=== PATIENT | female | born 1935 | race Caucasian/White ===

== ENCOUNTER 2017-12-04 07:20 | Observation (INO) | payer MEDICARE, OTHER ==
[2017-12-04] VITALS (18 sets, daily range): BP systolic 100–201; BP diastolic 37–69
[~2017-12-04] VITALS: Ht 154.9 cm; Wt 73.5 kg
--- NOTE | ~2017-12-04 | H ---
[address] [address] HISTORY AND PHYSICAL Name: BANDAR POSADA Room: [address] Lisa Shepherd#: [id number] Admission: 12/04/17 Attend Phys: Augustine Coulter MD, Discharge: 12/05/17 Date of : 35 Report #: [id number] THIS REPORT FOR: //name// Please refer to the History and Physical performed in the physician's office. By: [id number] Records Staff JACKIE /CAREN
[~2017-12-04 07:20] MED LIST: ASPIR 8181 MG PO; ATORVASTATIN CA40 MG PO; COZAAR 50 MG TA50 M2 PO; FISH OIL 1,001000 M2 PO; LASIX 40 MG TAB40 M2 PO; NITROGLYCERIN0.4 MG SUBLING; OMEPRAZOLE40 MG PO; OYSTER SHELL C1 EA15 PO; PLAVIX 75 MG TA75 M1 PO; POTASSIUM20 PO; SYNTHROID75 MCG PO; TOPROL XL25 MG PO
[2017-12-04 08:06] LABS: HEMATOCRIT 40.6 % (37.0-47.0); HEMOGLOBIN 13.1 gm/dL (12.0-15.0); MCH 29.9 pg (26.0-34.0); MCHC 32.3 g/dL (28.0-37.0); MCV 92.6 fL (80.0-100.0); MPV 7.2 fl. (7.2-11.1); RBC 4.39 mil/uL (4.20-5.00); RDW-CV 14.4 % (10.5-14.5)
[2017-12-04 08:14] LABS: APTT 24.1 Seconds (25.0-31.3); INR 1.1; PROTIME 10.4 Seconds (9.20-11.50)
[2017-12-04 08:17] LABS: ANION GAP 4 mmol/L (7-16); BUN 20 mg/dL (7-18); CALCIUM 9.2 mg/dL (8.5-10.1); CHLORIDE 107 mmol/L (98-107); CO2 28 mmol/L (21-32); GLUCOSE 94 mg/dL (70-99); POTASSIUM 3.8 mmol/L (3.5-5.1); SODIUM 139 mmol/L (136-145)
[2017-12-04 08:19] LABS: ALBUMIN 3.7 g/dL (3.4-5.0); ALKALINE PHOSPHATASE 157 U/L (46-116); CHOLESTEROL 97 mg/dL (<200); HDL CHOLESTEROL 62 mg/dL (>40); LDL CHOLESTEROL 23 mg/dL (<100); SGOT 41 U/L (15-37); SGPT 70 U/L (30-65); TC:HDL 1.6 Ratio (Not establshd); TOTAL BILIRUBIN 0.4 mg/dL (<0.1-1.0); TOTAL PROTEIN 7.5 g/dL (6.4-8.2); TRIGLYCERIDE 63 mg/dL (<150); VLDL 13 mg/dL (<40)
[2017-12-04 08:20] LABS: SERUM ASSESSMENT Clear
[2017-12-05] VITALS: BP 182/70
[2017-12-05 04:00] VITALS: BP 128/71
[2017-12-05 05:02] LABS: HEMATOCRIT 35.5 % (37.0-47.0); HEMOGLOBIN 11.8 gm/dL (12.0-15.0); MCH 30.5 pg (26.0-34.0); MCHC 33.2 g/dL (28.0-37.0); MCV 91.9 fL (80.0-100.0); MPV 7.4 fl. (7.2-11.1); RBC 3.86 mil/uL (4.20-5.00); RDW-CV 14.4 % (10.5-14.5); WBC 6.8 thou/uL (4.0-11.0)
[2017-12-05 05:37] LABS: ALBUMIN 3.1 g/dL (3.4-5.0); CALCIUM 8.4 mg/dL (8.5-10.1); CREATININE 0.9 mg/dL (0.6-1.3); POTASSIUM 4.5 mmol/L (3.5-5.1); TOTAL BILIRUBIN 0.5 mg/dL (<0.1-1.0); TOTAL PROTEIN 5.9 g/dL (6.4-8.2); TROPONIN-I LEVEL 0.08 ng/mL (<0.06)
[2017-12-05 08:00] VITALS: BP 112/64
[2017-12-05] MEDS ORDERED: BRILINTA90 MG PO (10:33)
[2017-12-05 10:40] VITALS: BP 149/47
--- NOTE | 2017-12-05 11:24 | CARD ---
[address] [address] CARDIAC CATH REPORT Name: BANDAR POSADA Room: [address] M.RMiguel#: [id number] Admission: 12/04/17 Attend Phys: Augustine Coulter MD, Discharge: Date of : 35 Report #: [id number] THIS REPORT FOR: //name// APPROVED REPORT Study performed: 12/04/2017 08:59:57 Patient Details Patient Status: Out-Patient Room #: Event Personnel Augustine Coulter MD Procedures Performed Left heart catheterization left ventriculography selective coronary arteriography and percutaneous coronary intervention to the LAD with atherectomy and stenting of the proximal and mid LAD Indication Dyspnea, Positive stress test Risk Factors Hypercholesterolemia, Hypertension Previous Procedures/Diagnoses Previous PCI Admission/Lab Medications/Medications given during procedure Aspirin, Platelet Aff. Inhib., Angiomax bolus and infusion Procedure Narrative The patient was brought electively to the Cardiac Catheterization Laboratory and was prepped and draped in a sterile manner. The right femoral was infiltrated with 1% Lidocaine subcutaneous anesthesia. A 6 [place] Islander sheath was inserted into the right femoral artery. Coronary angiography was performed using coronary diagnostic catheters. The right coronary system was accessed and visualized with a Diagnostic catheter. The left coronary system was accessed and visualized with a Diagnostic catheter. The left ventricle was accessed and visualized with a Diagnostic catheter. Left ventricular/Aortic Valve gradient assessed via catheter pullback. Left ventriculogram was performed in PAIZ projection. Pre-demployment femoral angiogram was performed . Closure device was deployed with a 6 Fr Angio-Seal. There was no hematoma. [address] [address] CARDIAC CATH REPORT Name: ALBINOBANDAR Room: [address] Lisa Shepherd#: [id number] Admission: 12/04/17 Attend Phys: Augustine Coulter MD, Discharge: Date of : 35 Report #: [id number] Coronary Angiography The patient's coronary anatomy is left dominant. Diagnostic Cath Left Main 0% narrowing LAD 75% proximal with 90% heavily calcified mid LAD stenosis with FRANCIS 2 flow to the distal vessel Circumflex 75% mid vessel narrowing and 95% narrowing of the proximal portion of the prominent second marginal branch Right Coronary Small nondominant vessel with 80-90% proximal narrowing Left Ventriculography The left ventricle is normal in size with normal contractility. The left ventricular ejection fraction is estimated to be 65%. Left ventricular wall motion abnormalities are not present. There is no mitral insufficiency. Hemodynamics The aortic pressure is 140/70 mmHg with a mean of 82 mmHg. The left ventricular end diastolic pressure is 20 mmHg. There was no gradient across the aortic valve upon pullback. PCI Technique Lesion Anticoagulation was achieved with Angiomax. Percutaneous coronary intervention was performed on the mid LAD. The lesion stenosis prior to intervention was 95% with FRANCIS 2 flow. A 6 [place]er XB LAD 3.0 Guide Catheter was used to engage the left ostium. A 014 prowater flex Interventional Guidewire was used to cross the lesion. BALLOON DILATION A Balloon catheter 2.0 x 12 mm trek was inserted and inflated up to 14atm for 10seconds. I then proceeded with atherotomy atherectomy with a 2.0 x 10 mm angioscope scoring balloon inflated to 8 roseanne to allow lesion modification and adequate stent deployment STENT DEPLOYMENT A drug-eluting stent 2,25x12 xience alpine was inserted and inflated up to 10atm for 15seconds. Final angiography reveals 10 % stenosis with FRANCIS and3 flow. PCI Technique Lesion 2 Percutaneous Coronary Intervention was performed on the proximal left anterior descending artery segment[place] [address] CARDIAC CATH REPORT Name: BANDAR POSADA Room: [address] M.RMiguel#: [id number] Admission: 12/04/17 Attend Phys: Augustine Coulter MD, Discharge: Date of : 35 Report #: [id number] intervention was performed on the proximal LAD. The lesion stenosis prior to intervention was 75% with FRANCIS 3 flow. Balloon Dilation A Balloon catheter 2.5 x 12 NC trek was inserted and inflated up to 15atm for 15seconds. Stent Deployment A drug-eluting stent 2.25 x 18 mm Xience Alpine was inserted and inflated up to 14atm for 15seconds. Final angiography reveals 0 % stenosis with FRANCIS 3 flow. Conclusion #1 significant multivessel coronary artery disease characterized by the following: A 75% proximal and 95% mid LAD stenosis, the latter being heavily calcified B 75% midcircumflex stenosis with 90% stenosis of the proximal portion of the prominent second marginal branch C small nondominant right coronary artery with 80-90% proximal narrowing #2 normal left ventricular systolic function, estimated ejection fraction being 65% #3 moderate elevation of left ventricular end-diastolic pressure at rest #4 successful percutaneous coronary intervention with atherectomy followed by stenting of the mid LAD with 10% residual narrowing following final stent deployment #5 successful percutaneous coronary intervention with angioplasty followed by stenting of the proximal LAD with 0% residual narrowing following stent deployment Recommendations Cardiac Risk Reduction Program Aggressive Medical Therapy [place] [address] CARDIAC CATH REPORT Name: BANDAR POSADA Room: [address] M.R.#: [id number] Admission: 12/04/17 Attend Phys: Augustine Coulter MD, Discharge: Date of : 35 Report #: [id number] Aspirin (any) Ticagrelor Diagnostic Cath Approved by: Augustine Coulter MD Date/Time: 12/05/17 and 1122 hrs. <ELECTRONICALLY SIGNED> By: Augustine Coulter MD, [facility] 12/05/17 1124 1124Joanuj Coulter MD, FACC /INF
--- NOTE | 2017-12-05 13:37 | EKG ---
[place] [address] ELECTROCARDIOGRAM REPORT Name: BANDAR POSADA Kosta Room: [address]#: [id number] Admission: 12/04/17 Attend Phys: Augustine Coulter MD, Discharge: 12/05/17 Date of : 35 Report #: [id number] THIS REPORT FOR: //name// [facility] Test Date: 2017-12-04 Test Time: 08:26:57 Pat Name: BANDAR POSADA Department: Room: Gender: F Manager Report: [facility] : 1935 Requested By: Augustine Coulter Order Number: [id number] Reading MD: Donald Cole Measurements Intervals [place] Rate: 52 P: 43 [place]: 193 QRS: 77 QRSD: 101 T: 65 QT: 437 QTc: 407 Interpretive Statements Sinus rhythm Atrial premature complex Low voltage, precordial leads No previous ECG available for comparison Electronically Signed On 12-05-2017 13:37:13 CDT by Donald Cole [email or web address] <ELECTRONICALLY SIGNED> By: Donald Cole MD, [facility] 12/05/17 1337 0826 5 Donald Cole MD, [facility] /EPI
--- NOTE | 2017-12-05 14:28 | EKG ---
[place] [address] ELECTROCARDIOGRAM REPORT Name: BANDAR POSADA Kosta Room: [address]#: [id number] Admission: 12/04/17 Attend Phys: Augustine Coulter MD, Discharge: 12/05/17 Date of : 35 Report #: [id number] THIS REPORT FOR: //name// [facility] Test Date: 2017-12-04 Test Time: 12:44:36 Pat Name: BANDAR POSADA Department: Room: Gender: F Cash Manager: [facility] : 1935 Requested By: Augustine Coulter Order Number: [id number] Reading MD: Donald Cole Measurements Intervals [place] Rate: 57 P: 65 NE: 190 QRS: 57 QRSD: 98 T: 56 QT: 451 QTc: 440 Interpretive Statements Sinus rhythm Low voltage, extremity leads No previous ECG available for comparison Electronically Signed On 12-05-2017 14:28:27 CDT by Donald Cole [email or web address] <ELECTRONICALLY SIGNED> By: Donald Cloe MD, [facility] 12/05/17 1428 1244 1244 Donald Cole MD, [facility] /EPI
--- NOTE | 2017-12-05 14:31 | EKG ---
[place] [address] ELECTROCARDIOGRAM REPORT Name: BANDAR POSADA Kosta Room: [address]#: [id number] Admission: 12/04/17 Attend Phys: Augustine Coulter MD, Discharge: 12/05/17 Date of : 35 Report #: [id number] THIS REPORT FOR: //name// [facility] Test Date: 2017-12-05 Test Time: 08:39:14 Pat Name: BANDAR POSADA Department: Room: Gender: F Educational Paraprofessional: : 1935 Requested By: Augustine Coulter Order Number: [id number] Reading MD: Donald Cole Measurements Intervals [place] Rate: 62 P: 78 [place]: 183 QRS: 102 QRSD: 99 T: 33 QT: 446 QTc: 453 Interpretive Statements Sinus rhythm Right axis deviation Borderline low voltage, extremity leads No previous ECG available for comparison Electronically Signed On 12-05-2017 14:31:33 CDT by Donald Cole [email or web address] <ELECTRONICALLY SIGNED> By: Donald Cole MD, [facility] 12/05/17 1431 0839 0839 Donald Cole MD, [facility] /EPI
--- NOTE | 2017-12-05 17:06 | D ---
[address] [address] DISCHARGE SUMMARY Name: ALBINOBANDAR Kosta Room: [address] Lisa Shepherd#: [id number] Admission: 12/04/17 Attend Phys: Augustine Coulter MD, Discharge: 12/05/17 Date of : 35 Report #: [id number] THIS REPORT FOR: //name// CC: Augustine Tamayo DATE OF SERVICE: 12/05/2017 LOCATION: The patient is discharged from room 230. FINAL DISCHARGE DIAGNOSES: 1. Abnormal nuclear stress test with inducible anteroapical ischemia. 2. Coronary artery disease. 3. Status post percutaneous coronary intervention of the left anterior descending. 4. Hypertension. 5. Hyperlipidemia. 6. Hypothyroidism. PROCEDURES: On 12/04/2017 - left heart catheterization, left ventriculography, selective coronary arteriography and percutaneous coronary intervention to the LAD with atherectomy and stenting of the LAD. HOSPITAL COURSE: The patient is an 82-year-old female with a history of coronary artery disease, hypertension and hyperlipidemia. Recently, she has noted some dyspnea on exertion, above and beyond that noted in the past. Nuclear stress test revealed inducible anteroapical ischemia and I performed cardiac catheterization on 12/04/2017, which revealed tandem 75% proximal and 90% to 95% heavily calcified mid LAD stenosis with 70% mid circumflex and 90% second marginal stenosis. I performed intervention on the LAD with a lesion modification with a scoring balloon and atherectomy of the more distal lesion, with dilatation of the proximal and subsequently deployment of two drug-eluting stents in the proximal and mid LAD with 10% and 0% residual narrowing with FRANCIS 3 flow of the distal vessel. Troponin reinaldo inconsequentially to 0.08. She did well post-procedurally, without chest pain and there was good hemostasis of the right femoral site of catheterization. She ambulated in the hallways without difficulty. LABORATORY DATA: On 12/05/2017 revealed hemoglobin of 11.8, white blood cell count of 6800 with 231,000 platelets. Sodium 139, potassium 3.8, BUN 20 and creatinine 1.0. The patient ambulated in the hallways without difficulty. She will be seen by my nurse practitioner next week with a tentative plan to schedule staged intervention to the circumflex in the week of 12/18/[place] [address] DISCHARGE SUMMARY Name: BANDAR POSADA Room: [address] Cora#: [id number] Admission: 12/04/17 Attend Phys: Augustine Coulter MD, Discharge: 12/05/17 Date of : 35 Report #: [id number] DISCHARGE MEDICATIONS: Thus, the patient is discharged to home on 12/05/2017 on the following medications: Aspirin 81 mg daily, atorvastatin 40 mg daily, calcium and vitamin D 1 tablet daily, fish oil 1000 mg daily, furosemide 40 mg daily, L-thyroxine 75 mcg daily, losartan 100 mg daily, metoprolol succinate 25 mg daily, omeprazole 40 mg daily, potassium chloride 20 mEq daily and Brilinta 90 mg b.i.d. with 180 mg loading dose. Again, she is to see my nurse practitioner next week for followup; I will plan to proceed with staged intervention of the circumflex in the week of 12/18/2017. <ELECTRONICALLY SIGNED> By: Augustine Coulter MD, FACC 12/05/17 1706 0912 1102Joanuj Coulter MD, FAC /nt
== END 2017-12-05 11:33 | disposition home or self-care (01) ==
LOC: M.CL 07:20 → M.2W 12:21 → M.TBA-CV 12:21 → M.2W 15:05
PROVIDERS: ADMIT Internal Medicine
DX: I25.10 Atherosclerotic heart disease of native coronary artery without angina pectoris (principal); I11.0 Hypertensive heart disease with heart failure; I50.31 Acute diastolic (congestive) heart failure; E78.5 Hyperlipidemia, unspecified; E03.9 Hypothyroidism, unspecified; I99.8 Other disorder of circulatory system; I34.0 Nonrheumatic mitral (valve) insufficiency; R94.39 Abnormal result of other cardiovascular function study; R06.09 Other forms of dyspnea; Z90.49 Acquired absence of other specified parts of digestive tract; Z72.89 Other problems related to lifestyle; Z95.5 Presence of coronary angioplasty implant and graft

== ENCOUNTER 2017-12-18 07:23 | Observation (INO) | payer MEDICARE, OTHER ==
[2017-12-18] VITALS (12 sets, daily range): BP systolic 122–174; BP diastolic 41–65
[~2017-12-18] VITALS: Ht 154.9 cm; Wt 67.6 kg
--- NOTE | ~2017-12-18 | H ---
[address] [address] HISTORY AND PHYSICAL Name: BANDAR POSADA Room: [address] Lisa Shepherd#: [id number] Admission: 12/18/17 Attend Phys: Augustine Coulter MD, Discharge: 12/19/17 Date of : 35 Report #: [id number] THIS REPORT FOR: //name// Please refer to the History and Physical performed in the physician's office. By: [id number] Records Staff JACKIE /CAREN
[~2017-12-18 07:23] MED LIST changes: +BRILINTA90 MG PO
[2017-12-18] MEDS ORDERED: MULTI VITAMIN1 EACH PO (08:22)
[2017-12-18 08:23] LABS: HEMATOCRIT 38.8 % (37.0-47.0); HEMOGLOBIN 12.8 gm/dL (12.0-15.0); MCH 30.2 pg (26.0-34.0); MCHC 32.9 g/dL (28.0-37.0); MCV 91.8 fL (80.0-100.0); MPV 7.3 fl. (7.2-11.1); RBC 4.23 mil/uL (4.20-5.00); RDW-CV 14.9 % (10.5-14.5)
[2017-12-18 08:35] LABS: APTT 22.1 Seconds (25.0-31.3); INR 1.1; PROTIME 10.4 Seconds (9.20-11.50)
[2017-12-18 09:15] LABS: ANION GAP 12 mmol/L (7-16); BUN 17 mg/dL (7-18); CALCIUM 8.5 mg/dL (8.5-10.1); CHLORIDE 106 mmol/L (98-107); CO2 23 mmol/L (21-32); CREATININE 1.2 mg/dL (0.6-1.3); GLUCOSE 90 mg/dL (70-99); POTASSIUM 3.4 mmol/L (3.5-5.1); SODIUM 141 mmol/L (136-145)
[2017-12-18 09:26] LABS: ALBUMIN 3.8 g/dL (3.4-5.0); ALKALINE PHOSPHATASE 194 U/L (46-116); CHOLESTEROL 103 mg/dL (<200); HDL CHOLESTEROL 61 mg/dL (>40); LDL CHOLESTEROL 30 mg/dL (<100); SGOT 53 U/L (15-37); SGPT 70 U/L (30-65); TC:HDL 1.7 Ratio (Not establshd); TOTAL BILIRUBIN 0.5 mg/dL (<0.1-1.0); TOTAL PROTEIN 7.7 g/dL (6.4-8.2); TRIGLYCERIDE 60 mg/dL (<150); VLDL 12 mg/dL (<40)
[2017-12-18 09:27] LABS: SERUM ASSESSMENT Clear
--- NOTE | 2017-12-18 19:35 | EKG ---
[place] [address] ELECTROCARDIOGRAM REPORT Name: BANDAR POSADA Room: [address] IN .R.#: [id number] Admission: 12/18/17 Attend Phys: Augustine Coulter MD, Discharge: Date of : 35 Report #: [id number] THIS REPORT FOR: //name// [facility] Test Date: 2017-12-18 Test Time: 08:12:36 Pat Name: BANDAR POSADA Department: Room: Gender: Custodian Manager: [facility] : 1935 Requested By: Augustine Coulter Order Number: [id number] Natalie MD: Charanjit Albarado Measurements Intervals [place] Rate: 64 P: 70 RI: 190 QRS: 40 QRSD: 108 T: 40 QT: 444 QTc: 458 Interpretive Statements Sinus rhythm Compared to ECG 12/05/2017 08:39:14 Right-axis deviation no longer present Electronically Signed On 12-18-2017 19:35:35 CDT by Charanjit Albarado [email or web address] <ELECTRONICALLY SIGNED> By: Charanjit Albarado MD, [facility] 12/18/171934 1 1 Charanjit Albarado MD, FACC /EPI
--- NOTE | 2017-12-18 19:36 | EKG ---
[place] [address] ELECTROCARDIOGRAM REPORT Name: BANDAR POSADA Room: [address] IN M.R.#: [id number] Admission: 12/18/17 Attend Phys: Augustine Coulter MD, Discharge: Date of : 35 Report #: [id number] THIS REPORT FOR: //name// [facility] Test Date: 2017-12-18 Test Time: 11:05:26 Pat Name: BANDAR POSADA Department: Room: Gender: F Storm Chaser: [facility] : 1935 Requested By: Augustine Coulter Order Number: [id number] Reading MD: Charanjit Albarado Measurements Intervals [place] Rate: 68 P: 76 ME: 201 QRS: 48 QRSD: 100 T: 44 QT: 437 QTc: 465 Interpretive Statements Sinus rhythm Low voltage, extremity and precordial leads Compared to ECG 12/05/2017 08:39:14 Right-axis deviation no longer present Electronically Signed On 12-18-2017 19:36:32 CDT by Charanjit Albarado [email or web address] <ELECTRONICALLY SIGNED> By: Charanjit Albarado MD, [facility] 12/18/171935 1105 1105 Charanjit Albarado MD, FAC /EPI
[2017-12-19 00:16] VITALS: BP 167/62
[2017-12-19 04:22] LABS: HEMATOCRIT 32.1 % (37.0-47.0); MCH 30.7 pg (26.0-34.0); MCHC 33.5 g/dL (28.0-37.0); MCV 91.6 fL (80.0-100.0); MPV 7.5 fl. (7.2-11.1); RBC 3.5 mil/uL (4.20-5.00); RDW-CV 14.9 % (10.5-14.5); WBC 5.3 thou/uL (4.0-11.0)
[2017-12-19 04:32] VITALS: BP 153/69
[2017-12-19 04:47] LABS: HEMOGLOBIN 10.7 gm/dL (12.0-15.0)
[2017-12-19 04:50] LABS: ALBUMIN 2.9 g/dL (3.4-5.0); ALKALINE PHOSPHATASE 160 U/L (46-116); ANION GAP 9 mmol/L (7-16); BUN 16 mg/dL (7-18); CALCIUM 7.8 mg/dL (8.5-10.1); CHLORIDE 111 mmol/L (98-107); CO2 23 mmol/L (21-32); CREATININE 0.9 mg/dL (0.6-1.3); GLUCOSE 88 mg/dL (70-99); POTASSIUM 4.3 mmol/L (3.5-5.1); SGOT 47 U/L (15-37); SGPT 59 U/L (30-65); SODIUM 143 mmol/L (136-145); TOTAL BILIRUBIN 0.4 mg/dL (<0.1-1.0); TOTAL PROTEIN 5.7 g/dL (6.4-8.2); TROPONIN-I LEVEL <0.06 ng/mL (<0.06)
[2017-12-19 08:24] VITALS: BP 171/57
[2017-12-19 08:28] VITALS: BP 163/68
[2017-12-19 12:00] VITALS: BP 148/55
--- NOTE | 2017-12-20 13:33 | EKG ---
[place] [address] ELECTROCARDIOGRAM REPORT Name: BANDAR POSADA Kosta Room: [address]#: [id number] Admission: 12/18/17 Attend Phys: Augustine Coulter MD, Discharge: 12/19/17 Date of : 35 Report #: [id number] THIS REPORT FOR: //name// [facility] Test Date: 2017-12-19 Test Time: 04:19:57 Pat Name: BANDAR POSADA Department: Room: Gender: F Network Intelligence Analyst: : 1935 Requested By: Augustine Coulter Order Number: [id number] Natalie MD: Charanjit Albarado Measurements Intervals [place] Rate: 72 P: 88 [place]: 194 QRS: 41 QRSD: 97 T: 45 QT: 406 QTc: 445 Interpretive Statements Sinus rhythm Low voltage, precordial leads Compared to ECG 12/18/2017 11:05:26 No significant changes Electronically Signed On 12-20-2017 13:33:38 CDT by Charanjit Albarado [email or web address] <ELECTRONICALLY SIGNED> By: Charanjit Albarado MD, [facility] 12/20/17 1333 0419 0419 Charanjit Albarado MD, [facility] /EPI
--- NOTE | 2017-12-22 10:05 | D ---
[address] [address] DISCHARGE SUMMARY Name: ALBINOBANDAR Room: [address] Lisa Shepherd#: [id number] Admission: 12/18/17 Attend Phys: Augustine Coulter MD, Discharge: 12/19/17 Date of : 35 Report #: [id number] THIS REPORT FOR: //name// CC: Augustine Tamayo DATE OF SERVICE: 12/19/2017 FINAL DISCHARGE DIAGNOSES: 1. Abnormal stress test. 2. Angina pectoris. 3. Coronary artery disease, status post multiple prior percutaneous coronary interventions. 4. Hypertension. 5. Chronic diastolic heart failure. 6. Hyperlipoproteinemia. PROCEDURES: 12/18/2017 - left heart catheterization, selective coronary arteriography and percutaneous coronary intervention of the circumflex. The patient is a very pleasant and active 82-year-old female with a history of complex coronary artery disease. Two weeks ago, she underwent atherectomy with stenting of the proximal - mid LAD. She was also noted to have significant circumflex lesions, which were not approached in that setting by virtue of contrast and radiation exposure. Since discharge, she has done reasonably well, though her activity pattern has been limited. She was readmitted on 12/19/2017 through outpatient for recatheterization, which revealed widely patent proximal LAD stent. There was 80% mid circumflex stenosis with 90% stenosis of the posterolateral branch of the distal circumflex. I deployed 2 drug-eluting stents, one in the proximal portion of the posterolateral branch and one in the mid circumflex with 0% residual narrowing at both sites following stent deployment and FRANCIS 3 flow of the distal vessel. The patient did well post-procedurally and there was good hemostasis at the right femoral site of catheterization. Sodium 141, potassium 3.4, BUN 17, creatinine 1.2. Hemoglobin 10.7, white blood cell count 5300 with 233,000 platelets. Troponin less than 0.06. There was good hemostasis at the right femoral site of catheterization. The patient was discharged to home on 12/19/2017 on the following medications: Aspirin 81 mg daily, atorvastatin 40 mg at bedtime, fish oil 1000 mg daily, furosemide 40 mg daily, L-thyroxine 75 mcg daily, losartan 100 mg daily, metoprolol succinate 25 mg daily, multivitamin 1 tablet daily, omeprazole [address] [place] [address] DISCHARGE SUMMARY Name: BANDAR POSADA Room: [address] Lisa Shepherd#: [id number] Admission: 12/18/17 Attend Phys: Augustine Coulter MD, Discharge: 12/19/17 Date of : 35 Report #: [id number], potassium chloride 20 mEq daily, ticagrelor or Brilinta 90 mg b.i.d. Our plan to see the patient in followup on 12/28/2017. She is discharged to home in stable condition on the aforementioned medications with followup as iterated above. The patient was discharged from [facility] on 12/19/2017. <ELECTRONICALLY SIGNED> By: Augustine Coulter MD, FACC 12/22/17 1005 1205 1320Augustine Coulter MD, FAC /nt
--- NOTE | 2017-12-23 12:04 | CARD ---
[address] [address] CARDIAC CATH REPORT Name: BANDAR POSADA Room: [address] Lisa Shepherd#: [id number] Admission: 12/18/17 Attend Phys: Augustine Coulter MD, Discharge: 12/19/17 Date of : 35 Report #: [id number] THIS REPORT FOR: //name// APPROVED REPORT Study performed: 12/18/2017 08:02:10 Patient Details Patient Status: Out-Patient Room #: The patient is a 82 year-old female Event Personnel Augustine Coulter Thread Winder, Augustine Coulter Tennis Director, Zenia Melara RN Jackscrew Worker, Murtaza Rose, Tatyana Dwyer Monitor Procedures Performed Art Access - R femoral artery* Left Heart Cath w/or w/o Coronaries [id number] [facility] GIUSEPPE Place w/wo Plasty Single CIRC [id number] GIUSEPPE Place w/wo Plasty Single ABHIJIT [id number] , Selective Right and Left Coronary Angiography; the cutaneous coronary intervention with deployment of drug-eluting stents in the mid circumflex and the first posterolateral branch of the circumflex, Left Heart Catheterization Indication Positive stress test Risk Factors Hypercholesterolemia, Hypertension Previous Procedures/Diagnoses Previous PCI Admission/Lab Medications/Medications given during procedure Aspirin, Platelet Aff. Inhib., Angiomax bolus and infusion Procedure Narrative The patient was brought electively to the Cardiac Catheterization Laboratory and was prepped and draped in a sterile manner. The right femoral was infiltrated with 2% Lidocaine subcutaneous anesthesia. A [place] 6 FR sheath was inserted into the right femoral artery. Coronary angiography was performed using coronary diagnostic catheters. The right coronary system was accessed and visualized with a Diagnostic 6fr JR 4 catheter. The left [place] [address] CARDIAC CATH REPORT Name: BANDAR POSADA [address]#: [id number] Admission: 12/18/17 Attend Phys: Augustine Coulter MD, Discharge: 12/19/17 Date of : 35 Report #: [id number] and visualized with a Diagnostic 6fr JL 4 catheter. The left ventricle was accessed and visualized with a Diagnostic 6fr Straight Pigtail catheter. Left ventricular/Aortic Valve gradient assessed via catheter pullback. Pre-demployment femoral angiogram was performed . Closure device was deployed with a 6 Fr Angioseal STS 6Fr. The patient tolerated the procedure well and there were no complications associated with the procedure. There was no hematoma. Intraoperative Conscious Sedation Sedation start time: 09:28 Case end Time: 10:10 Fentanyl 25 mcg Versed 1 mg Fluoro Time: 10.6 minutes Dose: DAP 46682 cGycm2 1401.33 mGy Contrast Type and Amount: Visipaque 235 ml Coronary Angiography The patient's coronary anatomy is left dominant. Diagnostic Cath Left Main 0% narrowing LAD 20% ostial narrowing with widely patent proximal LAD stents Circumflex Large dominant vessel with 80% mid vessel narrowing and 90% stenosis of the proximal portion of the prominent first posterolateral left ventricular branch Right Coronary Small nondominant vessel with 80% proximal narrowing Left Ventriculography Left Ventriculography was not performed. Hemodynamics The aortic pressure is 166/55 mmHg with a mean of mmHg. The left ventricular pressure is 165/6 mmHg with a mean of mmHg. The left ventricular end diastolic pressure is 20 mmHg. There was no gradient across the aortic valve upon pullback. PCI Technique Lesion Anticoagulation was achieved with Angiomax. Percutaneous coronary intervention was performed on the mid circumflex artery segment. The lesion stenosis prior to intervention was 80% with FRANCIS 3 flow. A 6FR XB 3.0 100CM Guide Catheter was used to engage the ostium. A IG: BMW 190cm Interventional Guidewire was used [place] [address] CARDIAC CATH REPORT Name: ALBINOBANDAR Kosta Room: [address]#: [id number] Admission: 12/18/17 Attend Phys: Augustine Coulter MD, Discharge: 12/19/17 Date of : 35 Report #: [id number] BALLOON DILATION A Balloon catheter Trek RX 2.75 X 8 was inserted and inflated up to 10.00atm for 8seconds. STENT DEPLOYMENT A drug-eluting stent Xience Alpine RX 2.75X08 was inserted and inflated up to 10.00atm for 8seconds. Additional Inflation: 11.00atm for 6seconds. Additional Inflation: 12.00atm for 7seconds. Final angiography reveals 0 % stenosis with FRANCIS 3 flow. PCI Technique Lesion 2 Percutaneous Coronary Intervention was performed on the first left posterolateral branch of the dominant circumflex. The lesion stenosis prior to intervention was 90% with FRANCIS 3 flow. A 6FR XB 3.0 100CM Guide Catheter was used to engage the ostium. A IG: ProwaterFlex 180CM Interventional Guidewire was used to cross the lesion. Balloon Dilation A Balloon catheter Trek RX 2.25 X 12 was inserted and inflated up to 10.00atm for 8seconds. Additional Inflation: 10.00atm for 7seconds. Stent Deployment A drug-eluting stent Xience Alpine RX 2.25X12 was inserted and inflated up to 10.00atm for 8seconds. Additional Inflation: 10.00atm for 7seconds. Final angiography reveals 0 % stenosis with FRANCIS 3 flow. Conclusion #1 significant coronary artery disease characterized by the following: A 20% ostial LAD narrowing with widely patent proximal LAD stents B large dominant circumflex with 80% mid vessel narrowing and 90% tubular narrowing of the proximal portion of the first posterolateral branch of the dominant circumflex C previously defined nondominant right coronary artery with 80% proximal stenosis #2 modest systemic systolic hypertension with moderate elevation of left ventricular end-diastolic [place] [address] CARDIAC CATH REPORT Name: BANDAR POSADA Room: [address] Lisa Shepherd#: [id number] Admission: 12/18/17 Attend Phys: Augustine Coulter MD, Discharge: 12/19/17 Date of : 35 Report #: [id number] #3 successful percutaneous coronary intervention with deployment of drug-eluting stents at the sites of 80% midcircumflex stenosis and 90% stenosis of the prominent first posterolateral branch of the circumflex with 0% residual narrowing at both sites following stent deployment and FRANCIS-3 flow to the distal vessel Recommendations Aggressive Medical Therapy Medications Administered Ticagrelor Diagnostic Cath Approved by: Augustine Coulter MD Date/Time: 12/23/2017 at 1203 hrs. <ELECTRONICALLY SIGNED> By: Augustine Coultre MD, [facility] 12/23/17 1204 1204 [id number] Coulter MD, [facility] /INF
== END 2017-12-19 13:30 | disposition home or self-care (01) ==
LOC: M.CL 07:23 → M.2W 10:42 → M.TBA-CV 10:42 → M.2W 10:42 → M.CL 12-20 09:00
PROVIDERS: ADMIT Internal Medicine
DX: I25.119 Atherosclerotic heart disease of native coronary artery with unspecified angina pectoris (principal); I11.0 Hypertensive heart disease with heart failure; I50.31 Acute diastolic (congestive) heart failure; E78.5 Hyperlipidemia, unspecified; R94.39 Abnormal result of other cardiovascular function study; I34.9 Nonrheumatic mitral valve disorder, unspecified; I36.1 Nonrheumatic tricuspid (valve) insufficiency; E78.00 Pure hypercholesterolemia, unspecified; E03.9 Hypothyroidism, unspecified; Z95.5 Presence of coronary angioplasty implant and graft; Z98.890 Other specified postprocedural states; Z72.89 Other problems related to lifestyle

== ENCOUNTER → 2018-10-16 | Outpatient (CLI) | payer MEDICARE, OTHER ==
[~2018-10-16] MED LIST changes: +MULTI VITAMIN1 EACH PO
--- NOTE | 2018-10-16 14:49 | CARDNUC ---
[place] [address] CARDIAC NUCLEAR IMAGING REPORT Name: BANDAR POSADA Room: [facility]#: [id number] Admission: 10/16/18 Attend Phys: Kosta Serrato Discharge: Date of : 35 Date of Service: 10/16/18 1449 Report #: [id number] THIS REPORT FOR: //name// APPROVED REPORT Imaging Protocol: Rest Tc-99m/Stress Tc-99m 1 day Study performed: 10/16/2018 09:30:00 Indication: CAD s/p PCI Patient Location: Out-Patient Stress Tech: Azra Marshall Stress Nurse: Tammy Adrian RN NM Tech:RACHID Quiñones Ht: 5 ft 1 in Wt: 150 lbs BSA: 1.67 m2 BMI: 28.33 Medical History Medical History: Angina, CAD s/p stent, Fatigue, HTN, HTN, SOB, Weakness Medications: ASA 81 MG, ATORVASTATIN, LASIX, LOSARTAN, METOPROLOL, NTG, KCL, BRILINTA Allergies: No known drug allergies Cardiac Risk Factors: Age, FHX of CAD, HTN, Hyperlipidemia, SOB. Previous Cardiac Procedures: PCI Pretest Chest Pain Characteristics: No chest pain Exercise History: Indeterminate Physical Disabilities: ORTHOPAEDIC PROBLEMS, USES CANE TO AMBULATE. Meds Held (24 hrs): METOPROLOL, NTG Meds Held (48 hrs): NTG Resting Data Rest SPECT myocardial perfusion imaging was performed in supine position 30 minutes following the intravenous injection of 11.0 mCi of Tc-99m Sestamibi. Time of rest injection: 954 Date: 10/16/2018 The images were gated to evaluate regional wall motion and calculate left ventricular ejection fraction. Administration Route: IV Administration Site: Right Hand Pharmacologic Stress Pharmacologic stress test was performed by injecting Regadenoson 0.4 [place] [address] CARDIAC NUCLEAR IMAGING REPORT Name: BANDAR POSADA Room: [facility]#: [id number] Admission: 10/16/18 Attend Phys: Kosta Serrato Discharge: Date of : 35 Date of Service: 10/16/18 1449 Report #: [id number] mg IV push over 10-15 seconds immediately followed by the intravenous injection of 34.2 mCi of Tc-99m Sestamibi. Time of stress injection: 1129 Date: 10/16/2018 Administration Route: IV Administration Site: Right Hand Gated Stress SPECT was performed 40 minutes after stress injection. The images were gated to evaluate regional wall motion and calculate left ventricular ejection fraction. Prone imaging was performed. Stress Test Details Stress Test: Pharmacologic stress testing performed using 0.4 mg of regadenoson per 5 mL given IV over 10 seconds. Reason for pharmacologic stress test: USES CANE TO AMBULATE.. HR Max Heart Rate (APMHR): 137 bpm Resting HR: 58 bpm Target HR (85% APMHR): 116 bpm Max HR Achieved: 110 bpm % of APMHR: 80 Recovery HR: 92 bpm BP Resting BP: 145/72 mmHg Max BP: 145/47 mmHg Recovery BP: 163/54 mmHg ECG Resting ECG: Sinus Rhythm Stress ECG: Sinus Tachycardia ST Change: None Arrhythmia: None Recovery ECG: Sinus Rhythm Recovery ST Change: None Recovery Arrhythmia: None Clinical Reason for Termination: Completed protocol Stress Symptoms: SOA, CHEST PRESSURE, LIGHTHEADED Exercise duration: 0 min 0 sec Exercise capacity: 1.00 METs Patient had symptoms of shortness of breath, chest pressure and lightheadedness with Lexiscan infusion felt to be due to medication effect in light of normal myocardial [place] [address] CARDIAC NUCLEAR IMAGING REPORT Name: BANDAR POSADA Room: [facility]#: [id number] Admission: 10/16/18 Attend Phys: Kosta Serrato Discharge: Date of : 35 Date of Service: 10/16/18 1449 Report #: [id number] Nurse Comments 83 year old female presented s/p stent with continued SOA. Patient tolerated sitting Lexiscan with minimal symptoms. Recovery unremarkable with PO caffeine, effective. Patient escorted via wheelchair by staff to Nuclear Medicine for images. Patient stable with no complaints at that time. Stress ECG Conclusion The baseline 12-lead EKG shows sinus rhythm with no significant Mr. T wave abnormality. EKGs obtained during and post Lexiscan infusion show sinus rhythm and sinus tachycardia with no significant ST or T wave changes when compared baseline. Study Quality Study: Good Artifact: No artifact Study Data At rest, the left ventricular ejection fraction was 75%.. Post stress, the left ventricular ejection was 83%.. TID = 1.00. Perfusion Normal left ventricular perfusion. Wall Motion Normal left ventricular wall motion. Nuclear Conclusion ECG Findings: negative for ischemia Clinical Findings: equivocal Nuclear Findings: negative for ischemia Exercise Capacity: not assessed Left Ventricular Function: normal Risk Study: low Myocardial perfusion images show no defect to suggest infarct or ischemia. Left ventricular systolic function appears normal on gated studies. This is a low risk study. <Conclusion> The baseline 12-lead EKG shows sinus rhythm with no significant Mr. T wave abnormality. EKGs obtained during [place] [address] CARDIAC NUCLEAR IMAGING REPORT Name: BANDAR POSADA Room: [facility] Cora#: [id number] Admission: 10/16/18 Attend Phys: Kosta Serrato Discharge: Date of : 35 Date of Service: 10/16/18 1449 Report #: [id number] show sinus rhythm and sinus tachycardia with no significant ST or T wave changes when compared baseline. <ELECTRONICALLY SIGNED> By: Charanjit Albarado MD, [facility] 10/16/18 1449 1449 144 Charanjit Albarado MD, FACC /INF
== END ==
LOC: M.NUC 04-18 14:53
DX: I25.10 Atherosclerotic heart disease of native coronary artery without angina pectoris (principal); I10 Essential (primary) hypertension; E78.5 Hyperlipidemia, unspecified; Z95.5 Presence of coronary angioplasty implant and graft; Z79.899 Other long term (current) drug therapy; Z82.49 Family history of ischemic heart disease and other diseases of the circulatory system

== ENCOUNTER → 2019-10-17 | Outpatient (CLI) | payer MEDICARE, OTHER ==
--- NOTE | 2019-10-17 16:30 | CARDNUC ---
[place] [address] CARDIAC NUCLEAR IMAGING REPORT Name: BANDAR POSADA Room: [facility]#: [id number] Admission: 10/17/19 Attend Phys: Kosta Serrato Discharge: Date of : 35 Date of Service: 10/17/19 1628 Report #: [id number] THIS REPORT FOR: cc: Ruy Tamayo Mohammad K. DO Liston, Michael J. MD [facility] ~ APPROVED REPORT Study performed: 10/17/2019 14:47:34 Exam: Nuclear Stress Test Indication: routine follow up Patient Location: Out-Patient Stress Tech: Renetta Palencia Stress Nurse: Layne Aguila RN Ht: 5 ft 1 in Wt: 141 lbs BSA: 1.63 m2 BMI: 26.63 Medical History Medical History: CAD s/p stent, HTN, Hyperlipidemia Medications: asa-81, atorvastatin, lasix, losartan. metoprolol Allergies: No known drug allergies Cardiac Risk Factors: Age, HTN, Hyperlipidemia, FHX of CAD Previous Cardiac Procedures: PCI Exercise History: Sedentary Meds Held (24 hrs): metoprolol Stress Test Details Stress Test: Pharmacologic stress testing performed using 0.4 mg of regadenoson per 5 mL given IV over 10 seconds. Reason for pharmacologic stress test: physical limitation. HR Resting HR: 57 bpm Max Heart Rate (APMHR): 136 bpm Max HR Achieved: 98 bpm Target HR (85% APMHR): 115 bpm % of APMHR: 72 Recovery HR: 86 bpm BP Resting BP: 172/59 mmHg Max BP: 179/49 [place] [address] CARDIAC NUCLEAR IMAGING REPORT Name: BANDAR POSADA Room: [facility]#: [id number] Admission: 10/17/19 Attend Phys: Kosta Serrato Discharge: Date of : 35 Date of Service: 10/17/19 1628 Report #: [id number] ECG Resting ECG: Sinus Rhythm Stress ECG: Sinus Rhythm ST Change: None Arrhythmia: None Recovery ECG: Sinus Rhythm Recovery ST Change: None Recovery Arrhythmia: None Clinical Reason for Termination: Completed protocol Exercise duration: 0 min sec Exercise capacity: 1 METs The patient tolerated Lexiscan infusion without significant cardiac symptoms. Nurse Comments pt too generalized weak to walk on treadmill Stress ECG Conclusion The baseline twelve-lead EKG shows sinus rhythm with no significant ST segment or T wave abnormality. EKGs obtained during and post Lexiscan infusion show sinus rhythm with no significant ST segment or T wave changes when compared to baseline. There were no stress-induced arrhythmias. NM EXAM: Myocardial Perfusion REST/STRESS Resting Data Rest SPECT myocardial perfusion imaging was performed in supine position 30 minutes following the intravenous injection of 10.5 mCi of Tc-99m Sestamibi. Time of rest injection: 13:05 The images were gated to evaluate regional wall motion and calculate left ventricular ejection fraction. Administration Route: IV Administration Site: Right Hand Pharmacologic Stress Pharmacologic stress test was performed by injecting Regadenoson 0.4 mg IV push followed by the intravenous injection of 32.8 mCi of Tc-99m Sestamibi. Time of stress injection: 14:50 Administration Route: IV Administration Site: Left Hand Heart Rate at time of stress injection: [address] [place] [address] CARDIAC NUCLEAR IMAGING REPORT Name: BANDAR POSADA Room: [facility]#: [id number] Admission: 10/17/19 Attend Phys: Kosta Serrato Discharge: Date of : 35 Date of Service: 10/17/19 1628 Report #: [id number] Gated Stress SPECT was performed 45 minutes after stress injection. The images were gated to evaluate regional wall motion and calculate left ventricular ejection fraction. Study Quality Study: Good Artifact: No artifact Study Data At rest, the left ventricular ejection fraction was 77%.. Post stress, the left ventricular ejection was 78%.. TID = 0.9. Perfusion Perfusion images obtained at rest and post Lexiscan stress showed uniform uptake of the radioisotope throughout the myocardium without defect. Wall Motion Normal left ventricular wall motion. Nuclear Conclusion ECG Findings: negative for ischemia Clinical Findings: negative for ischemia Nuclear Findings: negative for ischemia Exercise Capacity: not assessed Left Ventricular Function: normal Risk Study: low Myocardial perfusion images show no defect to suggest infarct or ischemia. Left ventricular systolic function appears normal on gated studies. This is a low risk study. <Conclusion> The baseline twelve-lead EKG shows sinus rhythm with no significant ST segment or T wave abnormality. EKGs obtained during and post Lexiscan infusion show sinus rhythm with no significant ST segment or T wave changes when compared to baseline. There were no stress-induced arrhythmias. <ELECTRONICALLY SIGNED> By: Charanjit Albarado MD, FACC 10/17/19 1628 1628 1628 Charanjit Albarado MD, FACC /INF
== END ==
LOC: M.NUC 04-23 16:24
DX: I25.10 Atherosclerotic heart disease of native coronary artery without angina pectoris (principal); Z95.5 Presence of coronary angioplasty implant and graft